=== PATIENT | male | born 1960 | race Caucasian/White ===

== ENCOUNTER → 2019-12-30 16:13 | Outpatient (BNVA) | payer OTHER, SELFPAY | PROVIDERS: Family Provider Family Medicine; PCP Family Medicine; Referring Provider Family Medicine; Visit Provider Dermatology | DX: C43.9 Malignant melanoma of skin, unspecified (principal) | CPT/HCPCS: 99202; 99203 ==

== ENCOUNTER → 2020-01-28 09:02 | Outpatient (BNVA) | payer OTHER, SELFPAY | PROVIDERS: Family Provider Family Medicine; PCP Family Medicine; Visit Provider Internal Medicine | DX: Z11.59 Encounter for screening for other viral diseases (principal); C43.9 Malignant melanoma of skin, unspecified | CPT/HCPCS: 87635 ==

== ENCOUNTER 2020-02-02 07:39 | Outpatient (CLI) | payer OTHER, SELFPAY ==
[2020-02-01 13:16] VITALS: BMI 46.0
[2020-02-02] VITALS (9 sets, daily range): BP systolic 134–184; BP diastolic 51–94; PULSE 53–74; RESP 16–21; TEMP 36.3–36.8; O2SAT 95–100
[2020-02-02] MEDS: sodium chloride 0.9% 1,000 ML 30 ML IV (08:15)
--- NOTE | 2020-02-02 08:20 | NM_ITS ---
WS: [id number] SENTINEL NODE TECHNIQUE: Left lower back sentinel node injection. Dynamic and static imaging was performed over one hour. CLINICAL INFORMATION: lymph node biopsy COMPARISON: None. PROCEDURE: The procedure including risks, benefits, and complications were discussed; the patient agr eed to proceed. Patient was prepped and draped in usual sterile fashion. Subsequently, 1% lidocaine p reservative-free was administered at the 12:00, 3:00, 6:00, and 9:00 o'clock positions for local anes thesia. Subsequently, 4 aliquots of filtered technetium 99m sulfur colloid was injected into the subc utaneous soft tissues about the melanoma scar/biopsy site. A total dose of 0.92 mCi was administered. Dynamic and static imaging was performed over one hour. Anterior, posterior and oblique imaging was p erformed. Left axillary sentinel lymph node was localized. No other visualized areas of radiotracer u ptake. Patient tolerated the procedure well with no immediate complications. NM/NM sentinel node inject [id number] IMPRESSION: 1. Uncomplicated left lower back sentinel node injection with a total dose of 0.92 mCi. 2. [place] node left axilla was localized with colloid marker.
--- NOTE | 2020-02-02 10:31 | W.PM.OPSUD ---
Surgery/Procedure H&P Update DATE OF PROCEDURE: February 02, 2020 DATE H&P PERFORMED: 01/25/20 H&P UPDATE INFORMATION: I have reviewed H&P completed within last 30 days, I have examined patient prior to procedure, No changes to prior documentation and Changes to prior documentation as noted here PREOP DIAGNOSIS: Melanoma lower back PLANNED PROCEDURE: Operation Date: 02/02/20 09:15 Proposed Procedures p wide local excisioon of melanoma on back and excision fo suspicious mole [id number] 25426 C43.9 L81.9(Not Applicable) - Wong Ames MD s Sentinal Lymph Node Biopsy(Not Applicable) - Wong Ames MD
--- NOTE | 2020-02-02 10:31 | W.PM.OPSUD ---
Surgery/Procedure H&P Update DATE OF PROCEDURE: February 02, 2020 DATE H&P PERFORMED: 01/25/20 H&P UPDATE INFORMATION: I have reviewed H&P completed within last 30 days, I have examined patient prior to procedure and No changes to prior documentation PREOP DIAGNOSIS: Melanoma lower back PLANNED PROCEDURE: Operation Date: 02/02/20 09:15 Proposed Procedures p wide local excisioon of melanoma on back and excision fo suspicious mole 12438 [id number] 60181 C43.9 L81.9(Not Applicable) - Wong Ames MD s Sentinal Lymph Node Biopsy(Not Applicable) - Wong Ames MD
--- NOTE | 2020-02-02 10:40 | ANES.PREANE2 ---
Pre-Anesthetic Assessment Pre-Anesthetic Assessment: Height/Weight: Height 1.83 m Weight 154.221 kg Temp Pulse Resp BP Pulse Ox 98.2 F 74 18 134/94 96 02/02/20 08:11 02/02/20 08:11 02/02/20 08:11 02/02/20 08:11 02/02/20 08:11 Preop Diagnosis: Melanoma lower back Proposed Procedure: Operation Date: 02/02/20 09:15 Proposed Procedures p wide local excisioon of melanoma on back and excision fo suspicious mole [id number] 46905 C43.9 L81.9(Not Applicable) - Wong Ames MD s Sentinal Lymph Node Biopsy(Not Applicable) - Wong Ames MD Was Beta Jerel taken within 24 hours: N/A Last intake: Intake Last Liquid Date 02/01/20 Last Liquid Time 21:00 Last Solid Date 02/01/20 Last Solid Time 21:00 Social: Social History: Tobacco (quit 2 year ago) Exam: Pre-Anes Outpt Exam: alert, oriented x 3, clear to auscultation bilaterally and regular rate & rhythm Airway: Submandibular: WNL Cervical ROM: WNL MP: 4 Dentition: Other (poor) History/ROS: No significant history except as noted and No significant complaints Pulmonary: Pulmonary: Asthma (severe asthma) and BRUSH CV/HEM: CV/HEM: None reported : : None reported Hepatic: Hepatic: None reported GI: GI: None reported Metabolic: Metabolic: Morbid obesity Musc/skel: Musc/skel: None reported Neuropsych: Neuropsych: None reported Anesthetic Plan: ASA status: 3 Anesthesia: General Meds/Allergies Current Medications: Current Medications Generic Name Dose Route Start Last Admin Trade Name Freq PRN Reason Stop Dose Admin Sodium Chloride 1,000 mls @ 30 ml s/hr 02/02/20 07:45 02/02/20 08:15 Sodium Chloride 0.9% IV 02/03/20 07:44 30 mls/hr .Q24H MARIO Administration PFSH Anesthesia PFSH: Medical History (Updated 02/01/20 @ 13:35 by Mojgan Otto) HTN (hypertension), benign Malignant melanoma Severe asthma Surgical History Myringotomy tube(s) status Family History Mother Anesthesia complication problems with waking up Other CAD (coronary artery disease) Diabetes Family history of premature coronary artery disease Hypertension Denies family history of Bleeding disorder Social History Smoking and tobacco status: former smoker Alcohol intake: never Household members: spouse Marital status: Current occupational status: employed History of recent travel: No Data Anesthesia Cardiac Studies: No Data to Display
--- NOTE | 2020-02-02 12:07 | SUR.OPER ---
Spouse updated of surgical status.
[2020-02-02] MEDS: neomycin-poly-bacitracin oint 28 gm 1 APPLIC TOPICAL (12:15)
[2020-02-02] MEDS: lidocaine 1% INJ 20 mL INJECTION (12:32)
--- NOTE | 2020-02-02 12:34 | PM.OP ---
Operative Report Date of procedure: February 02, 2020 Pre-op Diagnosis: 1. Melanoma lower back #2 suspicious skin lesion lower back Post-op diagnosis: same Procedure Done: 1. Excision of suspicious skin lesion measuring 0.7 x 0.7 cm back 2. Excision of melanoma lower back 3. Left axillary sentinel lymph node biopsy Pathology: none sent Surgeon: Wong Ames Anesthesia: General Condition: stable Disposition: PACU Procedure: The patient was taken to the operating room and intubated under general anesthesia after IV antibiotic had been administered and he was placed in the right lateral position. The lower back and left axilla was prepped and draped in a sterile manner. The patient had been previously injected with 0.92 ?Ci of technetium 99m sulfur colloid by the radiologist. Using 15 blade an oblique incision was made around the suspicious skin lesion on the right lower back, subcutaneous tissue was divided using electrocautery and the specimen was sent to pathology in formalin. Subcutaneous tissues were approximated with interrupted 3-0 Vicryl suture and skin was closed using running subcuticular 4-0 Monocryl suture and surgical glue. Using 15 blade an elliptical transverse incision was made around the melanoma on the left lower back with a 2 cm margin, the subcutaneous tissue was divided using electrocautery and the dissection was carried down to the muscular fascia. The defect measured 5 x 9 cm long. Using electrocautery superior and inferior subcutaneous flaps were created the subcutaneous tissues approximated using running 3-0 Vicryl suture and skin was closed using running subcuticular 4-0 Monocryl suture and surgical glue. Using gamma probe the incision site was marked on the left axilla at the site of maximal radioactivity. Using a 15 blade a 3 cm transverse incision was made, subcutaneous tissue was divided using electrocautery, clavipectoral fascia was opened and the radioactive lymph nodes were identified and excised without difficulty. Wound was irrigated saline, hemostasis ensured and subcutaneous tissues approximated using running 3-0 Vicryl suture and skin was closed using running subcuticular 4-0 Monocryl suture and glue. 0.5% Marcaine was infiltrated at all the surgical sites. The patient was extubated and transferred to recovery room in stable condition.
--- NOTE | 2020-02-02 12:43 | SUR.PHASEI ---
1241 PATIENT TO PACU FROM OR. RR EVEN AND UNLABORED. SPO2 100% ON SIMPLE MASK AT 8L. DRESSING TO BACK AND UNDER LEFT ARM, CDI.
--- NOTE | 2020-02-02 13:05 | ANE.PACU2 ---
Inpatient post-anesthesia follow up: Airway intact: Yes Vital signs: Temperature 97.4 F Pulse Rate 65 Respiratory Rate 21 Blood Pressure 175/89 Pulse Oximetry 97 Oxygen Delivery Me thod Room Air Oxygen Flow Rate 8 Fraction of Inspir ed Oxygen Hydration adequate: Yes Nausea and vomiting: No Pain level: 6 Mental status: Baseline
--- NOTE | 2020-02-02 13:10 | SUR.PHASEI ---
1308 PATIENT TO OPS. NO DISTRESS. DRESSING TO LEFT SIDE AND BACK, CDI.
--- NOTE | 2020-02-02 14:29 | SUR.PREOP ---
When the patient was changing back into clothes, noticed a bulging spot near the larger incision on his back. The incision was not saturated but did have a moderate amount of bloody drainage and I could see the bulge. I got Sheryl HULL to come look at the incision to compare to when the dressing was applied. She took photos with ipad and showed them to Dr. Ames. Instructions to just apply new dressing and that the bulge was there when the original dressing was applied. Some supplies were given to the patient for dressings at home.
== END 2020-02-02 14:29 | disposition home or self-care (01) ==
PROVIDERS: PCP Family Medicine; Visit Provider Surgery
DX: C43.59 Malignant melanoma of other part of trunk (principal); J45.909 Unspecified asthma, uncomplicated; E66.01 Morbid (severe) obesity due to excess calories; Z68.42 Body mass index [BMI] 45.0-49.9, adult; I10 Essential (primary) hypertension; Z87.891 Personal history of nicotine dependence
CPT/HCPCS: 12345; 38792; 88304; 88305; A9541; J0690; J1100; J2405; J2704; J2765; J3010; J3105; J3490; J7030

== ENCOUNTER → 2023-12-09 10:59 | Outpatient (BNVA) | payer OTHER, SELFPAY | PROVIDERS: Family Provider Family Medicine; PCP Family Medicine; Visit Provider Family Medicine | DX: M10.9 Gout, unspecified (principal); J45.909 Unspecified asthma, uncomplicated; Z00.00 Encounter for general adult medical examination without abnormal findings; E55.9 Vitamin D deficiency, unspecified; E03.9 Hypothyroidism, unspecified; M19.90 Unspecified osteoarthritis, unspecified site; H69.90 Unspecified Eustachian tube disorder, unspecified ear; R06.00 Dyspnea, unspecified; G47.33 Obstructive sleep apnea (adult) (pediatric); E66.9 Obesity, unspecified | CPT/HCPCS: 80053; 80061; 82607; 82652; 83036; 84443; 84550; 85025 ==

== ENCOUNTER 2024-03-01 12:43 | Outpatient (CLI) | payer OTHER, SELFPAY ==
--- NOTE | 2024-03-01 12:56 | CT_ITS ---
WS: [id number] CT TEMPORAL BONES TECHNIQUE: Noncontrast CT of the temporal bones with coronal and sagittal reformatted images. CLINICAL INFORMATION: OTH DISRD OF EUSTACHIAN TUBE,UNSPECIFIED EAR COMPARISON: None. DLP: 352.[address] scans at [facility] use at least one of these dose optimization techniques: automated e xposure control; mA and/or kV adjustment per patient size (includes targeted exams where dose is matc hed to clinical indication); or iterative reconstruction. FINDINGS: RIGHT: Opacification RIGHT mastoid air cells. Retraction RIGHT tympanic membrane. Soft tissue opacification involving the middle ear extending to the oval window and stapes footplate. This involves the epitymp bernadette mesotympanum and hypotympanum. Slight extension into prussaks space. Recommend correlation for c holesteatoma. Ossicles appear intact. Scutum appears intact. LEFT: Mild mucosal thickening LEFT mastoid tip. Normal external auditory canal. Ossicles are normal in appe arance. Middle ear is well aerated. Normal tegmen tympani. Semicircular canals and cochlea are normal in appearance. Prussak's space is normal. Normal inner ear structures. Normal vestibular aqueduct. F acial nerve recess is normal. CT/CT temporal bone wo con* [id number] IMPRESSION: Retraction of the RIGHT tympanic membrane with soft tissue opacification the RI GHT middle ear. Findings may be due to chronic infectious or inflammatory etiol ogies. Recommend exclusion of cholesteatoma.
== END 2024-03-01 12:44 | disposition home or self-care (01) ==
PROVIDERS: PCP Family Medicine; Visit Provider Specialist
DX: H69.80 Other specified disorders of Eustachian tube, unspecified ear (principal)
CPT/HCPCS: 70480

== ENCOUNTER 2024-06-08 09:24 | Day surgery (SDC) | payer BC, SELFPAY ==
[2024-06-08] VITALS (15 sets, daily range): BP systolic 155–216; BP diastolic 56–132; PULSE 70–82; RESP 16–21; TEMP 36.3–37.1; O2SAT 92–99; BMI 41.7
--- NOTE | 2024-06-08 10:04 | P.ANESASSM_ITS ---
Pre-Anesthetic Assessment Height/Weight: Height 6 ft 2 in Weight 325 lb Temp Pulse Resp BP Pulse Ox O2 Del Method 98.7 F 70 18 181/79 96 Room Air 06/08/24 09:58 06/08/24 09:58 06/08/24 09:58 06/08/24 09:58 06/08/24 09:58 06/08/24 09:58 Preop Diagnosis: Eustachian tube dysfunction Operation Date: 06/08/24 10:10 Proposed Procedures p Myringotomy and Tubes(Right) - Sly Montero MD s Eustachian Tube Dilation with balloon(Right) - Sly Montero MD Was Beta Jerel taken within 24 hours: N/A Was Clonidine taken within 24 hours: N/A Last intake: Intake Last Liquid Date 06/07/24 Last Liquid Time 21:00 Last Solid Date 06/07/24 Last Solid Time 18:00 Social No alcohol and No tobacco Exam alert, oriented x 3, clear to auscultation bilaterally and regular rate & rhythm Airway Submandibular: within normal limits Cervical ROM: within normal limits Mallampati: Class III Comments: Comments: Edentulous Anesthetic Plan ASA status: 3 Anesthesia: General Other: No prior issues with anesthesia NPO since yesterday History of MISTY, on CPAP Asthma, controlled with inhalers BMI 41.7, 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 Patient denies any hypertension, preop BP 181/79 METs greater than 4 Plan for general anesthesia Medications/Allergies Home Medications Medication Instructions Recorded Confirmed Last Taken Type albuterol sulfate 90 mcg/actuation 2 puff inhalation Q6H PRN 08/25/23 06/08/24 06/08/24 Rx aerosol inhaler shortness of breath or wheezing 3 months #8.5 grams fluticasone furoate 100 1 inh inhalation DAILY athsma #90 03/24/24 06/07/24 06/07/24 Rx mcg-vilanterol 25 mcg/dose ea inhalation powder (Breo Ellipta) hydrochlorothiazide 25 mg tablet 25 mg PO DAILY #90 tabs 03/24/24 06/07/24 06/07/24 Rx montelukast 10 mg tablet 10 mg PO DAILY asthma #90 tabs 03/24/24 06/07/24 06/07/24 Rx (Singulair) tiotropium bromide 2.5 2 inh inhalation DAILY asthma #12 03/24/24 06/07/24 06/08/24 Rx mcg/actuation mist for inhalation grams (Spiriva Respimat) colchicine 0.6 mg tablet 0.6 mg PO BID 06/07/24 06/07/24 06/07/24 History Allergies Allergy/AdvReac Type Severity Reaction Status Date / Time No Known Allergies Allergy Verified 12/09/23 10:05 [facility] Anesthesia Medical History (Updated 12/09/23 @ 11:21 by Alejandro Appiah DO) Sleep apnea with use of continuous positive airway pressure (CPAP) HTN (hypertension), benign Severe asthma Malignant melanoma Surgical History H/O melanoma excision (~02/02/20) Lower back with sentinel lymph node biopsy Myringotomy tube(s) status Family History Mother Anesthesia complication problems with waking up Other CAD (coronary artery disease) Diabetes Family history of premature coronary artery disease Hypertension Denies family history of Bleeding disorder Social History Smoking and tobacco/nicotine status: former use of tobacco/nicotine Alcohol intake: never Substance/Drug Use: never Household members: spouse Marital status: Current occupational status: employed Data Anesthesia Cardiac Studies: No Data to Display
[2024-06-08] MEDS: sodium chloride 0.9% 1,000 ML 30 ML IV (10:23)
--- NOTE | 2024-06-08 10:30 | W.PM.OPSUD ---
Surgery/Procedure H&P Update DATE OF PROCEDURE: June 08, 2024 DATE H&P PERFORMED: 05/28/24 CHANGES TO PREVIOUS DOCUMENTATION: None PREOP DIAGNOSIS: Eustachian tube dysfunction PRIMARY INDICATION FOR PROCEDURE: Eustachian Tube Dysfunction PLANNED PROCEDURE: Operation Date: 06/08/24 10:10 Proposed Procedures p Myringotomy and Tubes(Right) - Sly Montero MD s Eustachian Tube Dilation with balloon(Right) - Sly Montero MD
[2024-06-08] MEDS: oxymetazoline 0.05% Nasal Spray 15 mL 1 SPRAY NOSTRIL-B (10:45)
[2024-06-08] MEDS: lidocaine 4% PF 5 mL INJ 20 ML XX (10:46)
[2024-06-08] MEDS: lidocaine-epi 1% PF 1:200,000 30 mL SDV INJECTION (10:47)
[2024-06-08] MEDS: ciprofloxacin-dexameth Otic Susp 7.5 mL Btl 4 DROP EAR-RIGHT (10:48)
--- NOTE | 2024-06-08 11:17 | PM.OP ---
Operative Report Date of procedure: June 08, 2024 Pre-op diagnosis: Right ear chronic eustachian tube dysfunction Post-op diagnosis: same Post-op findings: Right ear otitis media with effustion Procedure done: - Right ear myringotomy with tympanostomy tube placement - Balloon dilation of the right eustachian tube Implants: Right ear tympanostomy tube Specimens removed/disposition: None Pathology: none sent Surgeon: Sly Montero Surgeon: Sly Montero MD Classroom Aide: Yojana Bernstein Anesthesia: General Estimated blood loss (mL): 5 IV fluids (mL): 800 Complications: None Findings: - Right otitis media with effusion; o/w normal right ear exam - Nomal right nasal cavity, nasopharynx, and Fossa of [place] Condition: stable Disposition: PACU Brief History: 64 yo wm with a long h/o right ear chronic eustachian tube dysfunction who desires surgical therapy. Procedure: The patient was identified in the preop holding area and was taken to the operating room where he was placed on the operating table in the supine position. Anesthesia was obtained with general endotracheal anesthesia. The patient's head was turned to the left exposing the right ear to the operating surgeon. An aural speculum was placed in the patient's right ear and the operating microscope with a 300 lens was brought into the field and was used to inspect the patient's right ear with the findings noted above. A radial incision was then made in the anterior-inferior quadrant of the patient's right tympanic membrane with a myringotomy knife and the middle ear effusion present was evacuated with suction. At this point a tympanostomy tube was placed in the myringotomy site with a pair of alligator forceps. Once the tube was in the proper position, the right ear was filled with Ciprodex otic suspension followed by cottonball. The nose had been previously packed with cottonoids soaked in Afrin lidocaine mix - the pledgets were removed from the nose and a 30 degree Barrios whit surgical telescope with the attached video camera system was used to inspect the patient's right nasal cavity and nasopharynx. The telescope was then used to guide the eustachian tube balloon into the right eustachian tube orifice. The eustachian tube balloon was then advanced into the right eustachian tube and was inflated to 12 lucy for 2 minutes. At this point the balloon was deflated and removed and the nasopharynx was reinspected and found to be normal. At this point the procedure was terminated and control of the patient was returned to anesthesia where he underwent an uneventful reversal of anesthesia and extubation and was taken to the recovery room in stable condition. There were no operative or anesthetic complications
[2024-06-08] MEDS: hyDRALAzine 20 mg/mL INJ 1 mL (11:28)
--- NOTE | 2024-06-08 11:51 | ECG_ITS ---
Related Content Database (RCDb) [employer] Test Date: 2024-06-08 Pat Name: Magdi Cordova Department: Room: Gender: Male Fence Maker: : [id number] Requested By: Jay Dunlap Order Number: [id number] Earl MD: Dee Barrett M.D. Measurements Intervals [place] Rate: 74 P: 56 MD: 163 QRS: 55 QRSD: 95 T: 81 QT: 390 QTc: 434 Interpretive Statements SINUS RHYTHM NONSPECIFIC ST & T-WAVE ABNORMALITY Compared to ECG 07/09/2016 06:20:50 No significant changes Electronically Signed On 06-08-2024 23:52:01 [employer]ANCE CUST[employer]ER SERVICE SPECIALIST by Dee Barrett M.D. [email or web address]
--- NOTE | 2024-06-09 13:15 | ANE.PACU2 ---
Inpatient post-anesthesia follow up: Airway intact: Yes Vital signs: Temperature 98.0 F Pulse Rate 73 Respiratory Rate 16 Blood Pressure 159/87 Pulse Oximetry 95 Oxygen Delivery Me thod Room Air Oxygen Flow Rate Fraction of Inspir ed Oxygen Hydration adequate: Yes Nausea and vomiting: No Pain level: 1 Mental status: Baseline
== END 2024-06-08 13:15 | disposition home or self-care (01) ==
PROVIDERS: PCP Family Medicine; Visit Provider Specialist
PROC: (CPT 69420; principal; 2024-06-08 10:00)
PROC: (CPT 69436; 2024-06-08 10:00)
DX: H69.81 Other specified disorders of Eustachian tube, right ear (principal); H66.91 Otitis media, unspecified, right ear; G47.33 Obstructive sleep apnea (adult) (pediatric); Z99.89 Dependence on other enabling machines and devices; Z87.891 Personal history of nicotine dependence
CPT/HCPCS: 69436; 69705; 93005; J0360; J1100; J2405; J2704; J3010; J7030

== ENCOUNTER 2024-08-24 11:07 | Outpatient (CLI) | payer BC, SELFPAY ==
--- NOTE | 2024-08-24 11:13 | XR_ITS ---
WS: [id number] XR chest 2V* [id number] REASON FOR EXAM: cough FINDINGS: Mild tortuosity of the thoracic aorta with calcification in the aortic arch. Borderline cardiomegaly. Upper lobe pulmonary veins are prominent. Calcified granulomatous disease bilaterally. No acute pulmonary parenchymal or pleural abnormality. Mild degenerative spondylosis in the thoracic spine. XR/XR chest 2V* [id number] IMPRESSION: Borderline cardiomegaly and pulmonary venous hypertension. No acute chest abnormality.
== END 2024-08-24 11:08 | disposition home or self-care (01) ==
PROVIDERS: PCP Family Medicine; Visit Provider Family Medicine
DX: J18.9 Pneumonia, unspecified organism (principal); R93.89 Abnormal findings on diagnostic imaging of other specified body structures; I70.0 Atherosclerosis of aorta; J84.10 Pulmonary fibrosis, unspecified; M47.894 Other spondylosis, thoracic region; I27.20 Pulmonary hypertension, unspecified
CPT/HCPCS: 71046